=== PATIENT | male | born 2000 | race African-American/Black ===

== ENCOUNTER 2019-05-01 19:07 | Emergency (ER) | payer SELFPAY ==
--- NOTE | 2019-05-01 19:31 | RAD REPORT ---
EXAM DESCRIPTION: RAD - Chest Pa And Lat (2 Views) - 05/01/2019 7:25 pm CLINICAL HISTORY: COUGH Chest pain. COMPARISON: <Comparisons> FINDINGS: The lungs are clear. The heart is normal in size. No displaced fractures. IMPRESSION: No acute or concerning finding suspected.
--- NOTE | 2019-05-01 20:04 | ER ---
Nurse's Notes [facility] Name: Becky Badillo Age: 18 yrs Sex: Male : 2000 Arrival Date: 05/01/2019 Time: 19:09 Bed 7 Private MD: Diagnosis: Cough;Tobacco abuse counseling;Tobacco use;Bronchitis, not specified as acute or chronic Presentation: 05/01 19:15 Presenting complaint: Patient states: cough x 3 weeks, non productive. Pt reports tl2 smoking multiple black and mild cigars per day. Pt reports headache from cough. Denies fever. Transition of care: patient was not received from another setting of care. Onset of symptoms was April 13, 2019. Risk Assessment: Do you want to hurt yourself or someone else? Patient reports no desire to harm self or others. Initial Sepsis Screen: Does the patient meet any 2 criteria? No. Patient's initial sepsis screen is negative. Does the patient have a suspected source of infection? No. Patient's initial sepsis screen is negative. Care prior to arrival: None. 19:15 Method Of Arrival: Ambulatory tl2 19:15 Acuity: SVETA 4 tl2 Triage Assessment: 19:17 General: Appears in no apparent distress. comfortable, Behavior is calm, cooperative, tl2 appropriate for age. Respiratory: Reports cough that is non-productive, dry, persistent since 3 weeks ago. Historical: - Allergies: 19:17 No Known Allergies; tl2 - Home Meds: 19:17 None [Active]; tl2 - PMHx: 19:17 None; tl2 - PSHx: 19:17 None; tl2 - Immunization history:: Adult Immunizations up to date. - Social history:: Smoking status: Patient uses tobacco products, cigars. - Ebola Screening: : No symptoms or risks identified at this time. - Family history:: not pertinent. Screenin:18 Abuse screen: Denies threats or abuse. Nutritional screening: No deficits noted. tl2 Tuberculosis screening: No symptoms or risk factors identified. Fall Risk None identified. Assessment: 19:28 General:. General: Appears comfortable, Behavior is calm, cooperative, appropriate for tr5 age. Pain: Denies pain. Neuro: Level of Consciousness is awake, alert, obeys commands, Oriented to person, place, time, situation, Bun Machine Operator are equal bilaterally Moves all extremities. Cardiovascular: Heart tones present Bruits absent Capillary refill < 3 seconds Pulses are all present. Edema is absent. Respiratory: Reports cough that is Airway is patent Trachea midline Respiratory effort is even, unlabored, Respiratory pattern is regular, Breath sounds are diminished bilaterally. GI: No signs and/or symptoms were reported involving the gastrointestinal system. : No signs and/or symptoms were reported regarding the genitourinary system. EENT: No signs and/or symptoms were reported regarding the EENT system. Derm: No signs and/or symptoms reported regarding the dermatologic system. Skin is intact, Skin is dry, Skin is pink, warm \T\ dry. Skin temperature is warm. Musculoskeletal: Capillary refill < 3 seconds, Range of motion: intact in all extremities. 20:00 Reassessment: Patient appears in no apparent distress at this time. Patient and/or tr5 family updated on plan of care and expected duration. Pain level reassessed. Patient is alert, oriented x 3, equal unlabored respirations, skin warm/dry/pink. Pt instructed on discharge instruction. Pt verbalized understanding and need for follow up with PCP. Vital Signs: 19:17 BP 113 / 88; Pulse 72; Resp 18; Temp 98.1(O); Pulse Ox 100% on R/A; Weight 81.65 kg; tl2 Height 5 ft. 9 in. (175.26 cm); Pain 2/10; 19:17 Body Mass Index 26.58 (81.65 kg, 175.26 cm) tl2 ED Course: 19:09 Patient arrived in ED. as 19:12 Fortino Fowler MD is Attending Physician. [facility] 19:16 Triage completed. tl2 19:17 Arm band placed on right wrist. tl2 19:18 Patient has correct armband on for positive identification. Bed in low position. Call tl2 light in reach. Side rails up X 1. 19:24 Chest Pa And Lat (2 Views) XRAY In Process Unspecified. EDMS 19:26 Tho Laureano, SONYA is Primary Nurse. tr5 20:05 No provider procedures requiring assistance completed. Patient did not have IV access tr5 during this emergency room visit. Administered Medications: No medications were administered Outcome: 20:02 Discharge ordered by . abran 20:12 Patient left the ED. tr5 20:14 Discharged to home tr5 20:14 Condition: stable 20:14 Discharge instructions given to patient, Instructed on discharge instructions, follow up and referral plans. medication usage, Prescriptions given X 2. Signatures: Dispatcher [employer] Fortino Hartmann MD MD cha Martinez, Amelia as Knox, Taylor RN RN tl2 Tho Laureano RN RN tr5
--- NOTE | 2019-05-01 20:04 | EDPHYS ---
Physician Documentation [facility] Name: Becky Badillo Age: 18 yrs Sex: Male : 2000 Arrival Date: 05/01/2019 Time: 19:09 Bed 7 Private MD: ED Physician Fortino Fowler HPI: 05/01 19:45 This 18 yrs old Black Male presents to ER via Ambulatory with complaints of Cough. abran 19:45 The patient or guardian reports cough, that is intermittent. Onset: The abran symptoms/episode began/occurred 3 day(s) ago. Severity of symptoms: At their worst the symptoms were mild, in the emergency department the symptoms are unchanged. Modifying factors: The symptoms are alleviated by nothing, the symptoms are aggravated by dust, exertion, smoke. Associated signs and symptoms: The patient has no apparent associated signs or symptoms. The patient has experienced similar episodes in the past, several times. Historical: - Allergies: 19:17 No Known Allergies; tl2 - Home Meds: 19:17 None [Active]; tl2 - PMHx: 19:17 None; tl2 - PSHx: 19:17 None; tl2 - Immunization history:: Adult Immunizations up to date. - Social history:: Smoking status: Patient uses tobacco products, cigars. - Ebola Screening: : No symptoms or risks identified at this time. - Family history:: not pertinent. ROS: 19:45 Constitutional: Negative for fever, chills, and weight loss, Eyes: Negative for injury, abran pain, redness, and discharge, ENT: Negative for injury, pain, and discharge, Neck: Negative for injury, pain, and swelling, Cardiovascular: Negative for chest pain, palpitations, and edema, Abdomen/GI: Negative for abdominal pain, nausea, vomiting, diarrhea, and constipation, Back: Negative for injury and pain, : Negative for injury, bleeding, discharge, and swelling, MS/Extremity: Negative for injury and deformity, Skin: Negative for injury, rash, and discoloration, Neuro: Negative for headache, weakness, numbness, tingling, and seizure, Psych: Negative for depression, anxiety, suicide ideation, homicidal ideation, and hallucinations, Allergy/Immunology: Negative for hives, rash, and allergies, Endocrine: Negative for neck swelling, polydipsia, polyuria, polyphagia, and marked weight changes, Hematologic/Lymphatic: Negative for swollen nodes, abnormal bleeding, and unusual bruising. 19:45 Respiratory: Positive for cough, with green sputum. Exam: 19:45 Constitutional: This is a well developed, well nourished patient who is awake, alert, abran and in no acute distress. Head/Face: Normocephalic, atraumatic. Eyes: Pupils equal round and reactive to light, extra-ocular motions intact. Lids and lashes normal. Conjunctiva and sclera are non-icteric and not injected. Cornea within normal limits. Periorbital areas with no swelling, redness, or edema. ENT: Nares patent. No nasal discharge, no septal abnormalities noted. Tympanic membranes are normal and external auditory canals are clear. Oropharynx with no redness, swelling, or masses, exudates, or evidence of obstruction, uvula midline. Mucous membranes moist. Neck: Trachea midline, no thyromegaly or masses palpated, and no cervical lymphadenopathy. Supple, full range of motion without nuchal rigidity, or vertebral point tenderness. No Meningismus. Chest/axilla: Normal chest wall appearance and motion. Nontender with no deformity. No lesions are appreciated. Cardiovascular: Regular rate and rhythm with a normal S1 and S2. No gallops, murmurs, or rubs. Normal PMI, no JVD. No pulse deficits. Abdomen/GI: Soft, non-tender, with normal bowel sounds. No distension or tympany. No guarding or rebound. No evidence of tenderness throughout. Back: No spinal tenderness. No costovertebral tenderness. Full range of motion. Male : Normal genitalia with no discharge or lesions. Skin: Warm, dry with normal turgor. Normal color with no rashes, no lesions, and no evidence of cellulitis. MS/ Extremity: Pulses equal, no cyanosis. Neurovascular intact. Full, normal range of motion. Neuro: Awake and alert, GCS 15, oriented to person, place, time, and situation. Cranial nerves II-XII grossly intact. Motor strength 5/5 in all extremities. Sensory grossly intact. Cerebellar exam normal. Normal gait. Psych: Awake, alert, with orientation to person, place and time. Behavior, mood, and affect are within normal limits. 19:45 Respiratory: the patient does not display signs of respiratory distress, Respirations: normal, Breath sounds: rhonchi, that are mild, are scattered. Vital Signs: 19:17 BP 113 / 88; Pulse 72; Resp 18; Temp 98.1(O); Pulse Ox 100% on R/A; Weight 81.65 kg; tl2 Height 5 ft. 9 in. (175.26 cm); Pain 2/10; 19:17 Body Mass Index 26.58 (81.65 kg, 175.26 cm) tl2 MDM: 19:12 Patient medically screened. [facility] 20:00 Data reviewed: vital signs, nurses notes, radiologic studies, plain films. [facility] 05/01 19:12 Order name: Chest Pa And Lat (2 Views) XRAY; Complete Time: 19:39 [facility] Administered Medications: No medications were administered Disposition: 05/01/19 20:02 Discharged to Home. Impression: Cough, Tobacco abuse counseling, Tobacco use, Bronchitis, not specified as acute or chronic. - Condition is Stable. - Discharge Instructions: Steps to Quit Smoking, Smoking Hazards, Upper Respiratory Infection, Adult, Cool Mist Vaporizer, Steps to Quit Smoking, [id number], Cough, Adult, [id number], Cough, Adult. - Prescriptions for Bromfed DM 2- 30-10 mg/5 mL Oral syrup - take 10 milliliter by ORAL route every 6 hours; 160 milliliter. Zithromax Z- Christiano 250 mg Oral Tablet - take 1 tablet by ORAL route as directed for 5 days Day 1 - take two (2) tablets one time. Day 2, 3, 4 , 5 take one (1) tablet once daily.; 6 tablet. - Medication Reconciliation Form, Thank You Letter, Antibiotic Education, Prescription Opioid Use form. - Follow up: Private Physician; When: 2 - 3 days; Reason: Recheck today's complaints, Continuance of care, Re-evaluation by your physician. - Problem is new. - Symptoms have improved. Signatures: Dispatcher [employer] EDFortino Leiva MD MD cha Knox, Taylor, RN RN tl2 Tho Laureano RN RN tr5 Corrections: (The following items were deleted from the chart) 20:12 20:02 05/01/2019 20:02 Discharged to Home. Impression: Cough; Tobacco abuse counseling; tr5 Tobacco use; Bronchitis, not specified as acute or chronic. Condition is Stable. Forms are Medication Reconciliation Form, Thank You Letter, Antibiotic Education, Prescription Opioid Use. Follow up: Private Physician; When: 2 - 3 days; Reason: Recheck today's complaints, Continuance of care, Re-evaluation by your physician. Problem is new. Symptoms have improved. abran
== END 2019-05-01 20:12 | disposition home or self-care (01) ==
LOC: ER 19:07
DX: J40 Bronchitis, not specified as acute or chronic (principal); Z72.0 Tobacco use; Z71.6 Tobacco abuse counseling
CPT/HCPCS: 71046; 99283

== ENCOUNTER 2020-05-29 18:30 | Emergency (ER) | payer SELFPAY ==
--- NOTE | 2020-05-29 21:10 | RAD REPORT ---
EXAM DESCRIPTION: RAD - Chest Single View - 05/29/2020 8:23 pm CLINICAL HISTORY: Cough;Hemoptysis COMPARISON: Two view chest April 2019 TECHNIQUE: AP portable chest image was obtained 05/29/2020 8:23 pm . FINDINGS: Lung volumes are low. No focal mass or consolidation. Heart and vasculature are normal. No measurable pleural effusion and no pneumothorax. No acute bony abnormality seen. No acute aortic fin dings suspected. IMPRESSION: Limited shallow inspiration film without acute cardiopulmonary finding.
--- NOTE | 2020-05-29 21:21 | EDPHYS ---
Physician Documentation [facility] Name: Becky Badillo Age: 19 yrs Sex: Male : 2000 Arrival Date: 05/29/2020 Time: 18:32 Bed 16 Private MD: ED Physician Yon Juarez HPI: 05/29 19:52 This 19 yrs old Black Male presents to ER via Ambulatory with complaints of Cough - cp blood. 19:52 The patient or guardian reports cough, that is intermittent, with productive sputum, cp productive with blood. Onset: The symptoms/episode began/occurred this morning. Associated signs and symptoms: Pertinent positives: sore throat, Pertinent negatives: chest pain, fever, vomiting. Historical: - Allergies: 18:59 No Known Allergies; ks7 - Home Meds: 18:59 None [Active]; ks7 - PMHx: 18:59 None; ks7 - PSHx: 18:59 None; ks7 - Immunization history:: Adult Immunizations not up to date. - Social history:: Smoking status: Patient/guardian denies using tobacco, QUIT 1 WEEK AGO. ROS: 20:00 Constitutional: Negative for body aches, chills, fever, poor PO intake. cp 20:00 Eyes: Negative for injury, pain, redness, and discharge. cp 20:00 ENT: Positive for sore throat. 20:00 Cardiovascular: Negative for chest pain, edema, palpitations. 20:00 Respiratory: Positive for cough, hemoptysis, Negative for shortness of breath, wheezing. 20:00 Neuro: Negative for headache, weakness. 20:00 All other systems are negative. Exam: 20:05 Head/Face: Normocephalic, atraumatic. cp 20:05 Constitutional: The patient appears in no acute distress, alert, awake, non-toxic, well developed, well nourished. 20:05 Eyes: Periorbital structures: appear normal, Conjunctiva: normal, no exudate, no cp injection, Lids and lashes: appear normal, bilaterally. 20:05 ENT: External ear(s): are unremarkable, Ear canal(s): are normal, clear, TM's: dullness, bilaterally, Nose: is normal, Mouth: Lips: moist, Oral mucosa: moist, Posterior pharynx: Airway: no evidence of obstruction, patent, Tonsils: no enlargement, no exudate, erythema, that is mild, exudate, is not appreciated. 20:05 Neck: Lymph nodes: no appreciated lymphadenopathy. 20:05 Chest/axilla: Inspection: normal, Palpation: is normal, no crepitus, no tenderness. 20:05 Cardiovascular: Rate: normal, Rhythm: regular, Edema: is not appreciated, JVD: is not appreciated. 20:05 Respiratory: the patient does not display signs of respiratory distress, Respirations: normal, no use of accessory muscles, no retractions, labored breathing, is not present, Breath sounds: are clear throughout, no decreased breath sounds, no stridor, no wheezing. 20:05 Abdomen/GI: Exam negative for discomfort, distension, guarding, Inspection: abdomen appears normal. Vital Signs: 18:55 BP 122 / 78; Pulse 81; Resp 18; Temp 99.3; Pulse Ox 100% on R/A; Weight 81.65 kg; ks7 Height 5 ft. 9 in. (175.26 cm); Pain 0/10; 20:30 BP 134 / 86; Pulse 68; Resp 17; Pulse Ox 100% on R/A; rv 18:55 Body Mass Index 26.58 (81.65 kg, 175.26 cm) ks7 MDM: 19:42 Patient medically screened. cp 20:00 Differential Diagnosis: Bronchitis Influenza Viral Syndrome Pneumonia Other COVID-19. cp 20:58 Test interpretation: by ED physician or midlevel provider: chest xray negative for cp infiltrates. 21:20 Data reviewed: vital signs, nurses notes, lab test result(s), radiologic studies, plain cp films. 21:20 Counseling: I had a detailed discussion with the patient and/or guardian regarding: the cp historical points, exam findings, and any diagnostic results supporting the discharge/admit diagnosis, lab results, radiology results, to return to the emergency department if symptoms worsen or persist or if there are any questions or concerns that arise at home. ED course: Patient instructed to quarantine until results of COVID-19 testing return. 05/29 19:51 Order name: COVID-19 cp 05/29 19:51 Order name: Flu cp 05/29 19:51 Order name: CXR XRAY; Complete Time: 21:13 cp 05/29 21:13 Interpretation: Report review. cp 05/29 19:51 Order name: Strep 05/29 19:51 Order name: Document PUI#; Complete Time: 21:06 05/29 21:16 Order name: Throat Culture [facility] 05/29 19:51 Order name: Droplet/Contact Precautions; Complete Time: 21:06 05/29 19:51 Order name: Labs collected and sent; Complete Time: 21:06 05/29 19:51 Order name: Notify Health Dept [id number]/ ; Complete Time: 21:06 Administered Medications: No medications were administered Disposition: 05/30 00:52 Co-signature as Attending Physician, Yon Juarez MD. [email or web address] Disposition: 05/29/20 21:20 Discharged to Home. Impression: Acute upper respiratory infection, unspecified. - Condition is Stable. - Discharge Instructions: Upper Respiratory Infection, Adult. - Prescriptions for Tessalon Perles 100 mg Oral Capsule - take 2 capsule by ORAL route every 8 hours As needed; 30 capsule. Zithromax Z- Christiano 250 mg Oral Tablet - take 1 tablet by ORAL route as directed for 5 days Day 1 - take two (2) tablets one time. Day 2, 3, 4 , 5 take one (1) tablet once daily.; 6 tablet. - Medication Reconciliation Form, Thank You Letter, Antibiotic Education, Prescription Opioid Use form. - Follow up: Private Physician; When: 2 - 3 days; Reason: Worsening of condition. - Problem is new. - Symptoms are unchanged. Addendum: 06/02/2020 09:14 Addendum: Notified patient of + COVID-19 test results 06/02/20 \T\ 0915, states feeling rn better now, return precautions given and understood. . Signatures: Dispatcher [employer] EDYon Araiza MD MD pkl Madhu Gutierres MD MD rn Page, Corey, PA PA Luis Sy RN RN mg2 Geraldine Walker RN RN ks7 Corrections: (The following items were deleted from the chart) 05/29 21:29 21:20 05/29/2020 21:20 Discharged to Home. Impression: Acute upper respiratory mg2 infection, unspecified. Condition is Stable. Forms are Medication Reconciliation Form, Thank You Letter, Antibiotic Education, Prescription Opioid Use. Follow up: Private Physician; When: 2 - 3 days; Reason: Worsening of condition. Problem is new. Symptoms are unchanged. cp
--- NOTE | 2020-05-29 21:21 | ER ---
Nurse's Notes [facility] Name: Becky Badillo Age: 19 yrs Sex: Male : 2000 Arrival Date: 05/29/2020 Time: 18:32 Bed 16 Private MD: Diagnosis: Acute upper respiratory infection, unspecified Presentation: 05/29 18:55 Chief complaint: Patient states: Pt comes in for blood in sputum x 1 today. Pt denies ks7 any upper respiratory sx until today. Pt also c/o losing sense of smell and taste since Tuesday. Pt unsure of whether he has been exposed to covid. Coronavirus screen: Client denies travel out of the [place] in the last 14 days. cough unrelated to allergies, loss of taste or smell, The client denies any previous COVID testing. Ebola Screen: Patient negative for fever greater than or equal to 101.5 degrees Fahrenheit, and additional compatible Ebola Virus Disease symptoms Patient denies exposure to infectious person. Patient denies travel to an Ebola-affected area in the 21 days before illness onset. Initial Sepsis Screen: Does the patient meet any 2 criteria? No. Patient's initial sepsis screen is negative. Does the patient have a suspected source of infection? No. Patient's initial sepsis screen is negative. Risk Assessment: Do you want to hurt yourself or someone else? Patient reports no desire to harm self or others. Onset of symptoms was May 29, 2020. 18:55 Method Of Arrival: Ambulatory ks7 18:55 Acuity: SVETA 3 ks7 Triage Assessment: 18:59 General: Appears in no apparent distress. Behavior is calm, cooperative. Pain: Denies ks7 pain. Historical: - Allergies: 18:59 No Known Allergies; ks7 - Home Meds: 18:59 None [Active]; ks7 - PMHx: 18:59 None; ks7 - PSHx: 18:59 None; ks7 - Immunization history:: Adult Immunizations not up to date. - Social history:: Smoking status: Patient/guardian denies using tobacco, QUIT 1 WEEK AGO. Screenin:09 Abuse screen: Denies threats or abuse. Denies injuries from another. Nutritional rv screening: No deficits noted. Tuberculosis screening: No symptoms or risk factors identified. Fall Risk None identified. Assessment: 21:00 General: Appears in no apparent distress. comfortable. Pain: Denies pain. Neuro: Level mg2 of Consciousness is awake, alert, obeys commands, Oriented to person, place, time, situation. Cardiovascular: Capillary refill < 3 seconds Patient's skin is warm and dry. Respiratory: Reports cough that is Airway is patent Respiratory effort is even, unlabored, Respiratory pattern is regular, symmetrical. GI: No signs and/or symptoms were reported involving the gastrointestinal system. : No signs and/or symptoms were reported regarding the genitourinary system. EENT: No signs and/or symptoms were reported regarding the EENT system. Derm: Skin is intact, is healthy with good turgor, Skin is pink, warm \T\ dry. normal. Musculoskeletal: Circulation, motion, and sensation intact. Capillary refill < 3 seconds. Vital Signs: 18:55 BP 122 / 78; Pulse 81; Resp 18; Temp 99.3; Pulse Ox 100% on R/A; Weight 81.65 kg; ks7 Height 5 ft. 9 in. (175.26 cm); Pain 0/10; 20:30 BP 134 / 86; Pulse 68; Resp 17; Pulse Ox 100% on R/A; rv 18:55 Body Mass Index 26.58 (81.65 kg, 175.26 cm) ks7 ED Course: 18:32 Patient arrived in ED. as 18:59 Triage completed. ks7 18:59 Arm band placed on right wrist. ks7 19:38 Fortino Pedroza PA is PHCP. cp 19:38 Yon Juarez MD is Attending Physician. cp 19:45 Eduardo Amezquita RN is Primary Nurse. rv 20:23 CXR XRAY In Process Unspecified. EDMS 21:00 Patient did not have IV access during this emergency room visit. mg2 21:09 Patient has correct armband on for positive identification. Placed in gown. Bed in low rv position. Call light in reach. Pulse ox on. NIBP on. 21:27 No provider procedures requiring assistance completed. mg2 Administered Medications: No medications were administered Outcome: 21:20 Discharge ordered by . cp 21:28 Discharged to home ambulatory. mg2 21:28 Condition: stable 21:28 Discharge instructions given to patient, Instructed on discharge instructions, follow up and referral plans. medication usage, Demonstrated understanding of instructions, follow-up care, medications, Prescriptions given X 2. 21:29 Patient left the ED. mg2 Signatures: Dispatcher [employer] EDMS Ysabel Andrews Corey, PA PA cp Gardose, Michele, RN RN mg2 Eduardo Amezquita RN RN rv Geraldine Walker RN RN ks7
[2020-05-29 21:34] VITALS: BP 134/86; TEMP 99.3; O2SAT 100
== END 2020-05-29 21:29 | disposition home or self-care (01) ==
LOC: ER 18:30
DX: U07.1 COVID-19 (principal); J98.8 Other specified respiratory disorders
CPT/HCPCS: 71045; 87070; 87081; 87804; 99283; U0002

== ENCOUNTER 2024-05-31 09:25 | Emergency (ER) | payer OTHER, SELFPAY ==
--- NOTE | 2024-05-31 09:46 | ER ---
Nurse's Notes [facility] Name: Becky Badillo Age: 23 yrs Sex: Male : 2000 Arrival Date: 05/31/2024 Time: 09:25 Bed 20 Private MD: Diagnosis: Acute pharyngitis, unspecified Presentation: 05/31 09:33 Chief complaint: Patient states: Sore throat X 3 days. Pt requesting doctors note. ld1 Coronavirus screen: At this time, the client does not indicate any symptoms associated with coronavirus-19. Ebola Screen: No symptoms or risks identified at this time. Initial Sepsis Screen: Does the patient meet any 2 criteria? No. Patient's initial sepsis screen is negative. Does the patient have a suspected source of infection? No. Patient's initial sepsis screen is negative. Risk Assessment: Do you want to hurt yourself or someone else? Patient reports no desire to harm self or others. Onset of symptoms was May 31, 2024. 09:33 Method Of Arrival: Ambulatory ld1 09:33 Acuity: SVETA 4 ld1 Triage Assessment: 09:36 General: Appears in no apparent distress. comfortable, Behavior is calm, cooperative, ld1 appropriate for age. Pain: Denies pain. EENT: No signs and/or symptoms were reported regarding the EENT system. Neuro: Level of Consciousness is awake, alert, obeys commands, Oriented to person, place, time, situation. Cardiovascular: Capillary refill < 3 seconds Patient's skin is warm and dry. Respiratory: Airway is patent Respiratory effort is even, unlabored. GI: Abdomen is flat, non-distended. : No signs and/or symptoms were reported regarding the genitourinary system. Derm: No signs and/or symptoms reported regarding the dermatologic system. Musculoskeletal: No signs and/or symptoms reported regarding the musculoskeletal system. Historical: - Allergies: 09:36 No Known Allergies; ld1 09:36 No Known Allergies; ar6 - Home Meds: 09:36 None [Active]; ld1 - PMHx: 09:36 None; ld1 - PSHx: 09:36 None; ld1 - Immunization history:: Adult Immunizations up to date, Adult Immunizations up to date. - Infectious Disease History:: Denies. Denies. - Social history:: Smoking status: Patient denies any tobacco usage or history of. Smoking status: Reported history of juuling and/or vaping. - Family history:: not pertinent. Screenin:36 [facility] ED Fall Risk Assessment (Adult) History of falling in the last 3 months, ar6 including since admission No falls in past 3 months (0 pts) Confusion or Disorientation No (0 pts) Intoxicated or Sedated No (0 pts) Impaired Gait No (0 pts) Mobility Assist Device Used No (0 pt) Altered Elimination No (0 pt) Score/Fall Risk Level 0 - 2 = Low Risk. Abuse screen: Denies threats or abuse. Denies injuries from another. Nutritional screening: No deficits noted. Tuberculosis screening: No symptoms or risk factors identified. Assessment: 09:33 Pain: Pain: Denies pain. Respiratory: Airway is patent Respiratory effort is even, ar6 unlabored, Breath sounds are clear bilaterally. EENT: Throat is pink is reddened. 09:33 General: Appears in no apparent distress. Behavior is calm, cooperative, appropriate ar6 for age. Neuro: Level of Consciousness is awake, alert, obeys commands, Oriented to person, place, time, situation. Cardiovascular: Capillary refill < 3 seconds. Respiratory: Reports cough that is non-productive. GI: Abdomen is flat, non-distended. : No signs and/or symptoms were reported regarding the genitourinary system. Derm: Skin is intact. Musculoskeletal: No signs and/or symptoms reported regarding the musculoskeletal system. Vital Signs: 09:33 Weight 95.25 kg; Height 5 ft. 9 in. ; Pain 0/10; ld1 09:36 BP 133 / 81; Pulse 77; Resp 18; Temp 98.6; Pulse Ox 100% on R/A; Weight 113.4 kg; ar6 Height 5 ft. 7 in. ; Pain 0/10; 09:54 BP 126 / 77; Pulse 81; Resp 16; Pulse Ox 100% on R/A; ar6 09:36 Body Mass Index 39.16 (113.40 kg, 170.18 cm) ar6 09:33 Pain Scale: Adult ld1 09:36 Pain Scale: Adult ar6 ED Course: 09:28 Patient arrived in ED. ra3 09:28 Fortino Fowler MD is Attending Physician. abran 09:33 Debra Lewis, RN is Primary Nurse. ar6 09:36 Triage completed. ld1 09:36 No apparent distress. ar6 09:36 Arm band placed on right wrist. ld1 09:36 Patient has correct armband on for positive identification. Bed in low position. Call ar6 light in reach. Side rails up X 1. Provided Education on:. Pulse ox on. NIBP on. Door closed. Noise minimized. Visitors limited. Lights dimmed. 09:36 No provider procedures requiring assistance completed. Patient did not have IV access ar6 during this emergency room visit. Administered Medications: No medications were administered Medication: 09:36 VIS not applicable for this client. ar6 Outcome: 09:39 Discharged to home ambulatory, ar6 09:39 Condition: good 09:39 Discharge instructions given to patient, Instructed on discharge instructions, follow up and referral plans. 09:45 Discharge ordered by . abran 09:55 Patient left the ED. ar6 Signatures: Fortino Fowler MD MD cha Sims, Lauren, RN RN ld1 Belem Kurtz ra3 Debra Lewis, RN RN ar6
--- NOTE | 2024-05-31 09:46 | EDPHYS ---
Physician Documentation [facility] Name: Becky Badillo Age: 23 yrs Sex: Male : 2000 Arrival Date: 05/31/2024 Time: :25 Bed 20 Private MD: ED Physician Fortino Fowler HPI: 05/31 09:40 This 23 yrs old Black Male presents to ER via Ambulatory with complaints of Sore Throat.abran 09:40 The patient presents with sore throat. The patient describes throat pain as constant. abran Onset: The symptoms/episode began/occurred 2 day(s) ago. Severity of symptoms: At their worst the symptoms were mild, in the emergency department the symptoms are unchanged. Modifying factors: The symptoms are alleviated by nothing, the symptoms are aggravated by swallowing. Associated signs and symptoms: The patient has no apparent associated signs or symptoms. The patient has experienced similar episodes in the past, a few times. Historical: - Allergies: 09:36 No Known Allergies; ld1 09:36 No Known Allergies; ar6 - Home Meds: 09:36 None [Active]; ld1 - PMHx: 09:36 None; ld1 - PSHx: 09:36 None; ld1 - Immunization history:: Adult Immunizations up to date, Adult Immunizations up to date. - Infectious Disease History:: Denies. Denies. - Social history:: Smoking status: Patient denies any tobacco usage or history of. Smoking status: Reported history of juuling and/or vaping. - Family history:: not pertinent. ROS: 09:40 Constitutional: Negative for fever, chills, and weight loss, Eyes: Negative for injury, abran pain, redness, and discharge, Neck: Negative for injury, pain, and swelling, Cardiovascular: Negative for chest pain, palpitations, and edema, Respiratory: Negative for shortness of breath, cough, wheezing, and pleuritic chest pain, Abdomen/GI: Negative for abdominal pain, nausea, vomiting, diarrhea, and constipation, Back: Negative for injury and pain, : Negative for injury, bleeding, discharge, and swelling, MS/Extremity: Negative for injury and deformity, Skin: Negative for injury, rash, and discoloration, Neuro: Negative for headache, weakness, numbness, tingling, and seizure, Psych: Negative for depression, anxiety, suicide ideation, homicidal ideation, and hallucinations, Allergy/Immunology: Negative for hives, rash, and allergies, Endocrine: Negative for neck swelling, polydipsia, polyuria, polyphagia, and marked weight changes, Hematologic/Lymphatic: Negative for swollen nodes, abnormal bleeding, and unusual bruising, 09:40 ENT: Positive for sinus congestion, sore throat, Exam: 09:40 Constitutional: This is a well developed, well nourished patient who is awake, alert, abran and in no acute distress. Head/Face: Normocephalic, atraumatic. Eyes: Pupils equal round and reactive to light, extra-ocular motions intact. Lids and lashes normal. Conjunctiva and sclera are non-icteric and not injected. Cornea within normal limits. Periorbital areas with no swelling, redness, or edema. Neck: Trachea midline, no thyromegaly or masses palpated, and no cervical lymphadenopathy. Supple, full range of motion without nuchal rigidity, or vertebral point tenderness. No Meningismus. Chest/axilla: Normal chest wall appearance and motion. Nontender with no deformity. No lesions are appreciated. Cardiovascular: Regular rate and rhythm with a normal S1 and S2. No gallops, murmurs, or rubs. Normal PMI, no JVD. No pulse deficits. Respiratory: Lungs have equal breath sounds bilaterally, clear to auscultation and percussion. No rales, rhonchi or wheezes noted. No increased work of breathing, no retractions or nasal flaring. Abdomen/GI: Soft, non-tender, with normal bowel sounds. No distension or tympany. No guarding or rebound. No evidence of tenderness throughout. Back: No spinal tenderness. No costovertebral tenderness. Full range of motion. Male : Normal genitalia with no discharge or lesions. Skin: Warm, dry with normal turgor. Normal color with no rashes, no lesions, and no evidence of cellulitis. MS/ Extremity: Pulses equal, no cyanosis. Neurovascular intact. Full, normal range of motion. Neuro: Awake and alert, GCS 15, oriented to person, place, time, and situation. Cranial nerves II-XII grossly intact. Motor strength 5/5 in all extremities. Sensory grossly intact. Cerebellar exam normal. Normal gait. Psych: Awake, alert, with orientation to person, place and time. Behavior, mood, and affect are within normal limits. 09:40 ENT: Posterior pharynx: Airway: normal, no evidence of obstruction, Tonsils: with erythema, Uvula: normal, midline, non-edematous, no erythema, swelling, is not appreciated, erythema, is not appreciated, Vital Signs: 09:33 Weight 95.25 kg; Height 5 ft. 9 in. ; Pain 0/10; ld1 09:36 BP 133 / 81; Pulse 77; Resp 18; Temp 98.6; Pulse Ox 100% on R/A; Weight 113.4 kg; ar6 Height 5 ft. 7 in. ; Pain 0/10; 09:54 BP 126 / 77; Pulse 81; Resp 16; Pulse Ox 100% on R/A; ar6 09:36 Body Mass Index 39.16 (113.40 kg, 170.18 cm) ar6 09:33 Pain Scale: Adult ld1 09:36 Pain Scale: Adult ar6 MDM: 09:29 Patient medically screened. [facility] 09:43 Differential diagnosis: group A strep tonsillitis, pharyngitis. Data reviewed: vital abran signs, nurses notes. Consideration of Admission/Observation Escalation of care including admission/observation considered. I considered the following discharge prescriptions or medication management in the emergency department Medications were administered in the Emergency Department. See MAR. Care significantly affected by the following chronic conditions: none. Administered Medications: No medications were administered Disposition Summary: 05/31/24 09:45 Discharge Ordered Notes: Location: Home [facility] Problem: new abran Symptoms: have improved abran Condition: Stable abran Diagnosis - Acute pharyngitis, unspecified abran Followup: baran - With: Private Physician - When: 2 - 3 days - Reason: Recheck today's complaints, Continuance of care, Re-evaluation by your physician Discharge Instructions: - Discharge Summary Sheet abran - Pharyngitis abran - Sore Throat abran - Pharyngitis, [id number] abran Forms: - Work release form bd - Medication Reconciliation Form abran - Antibiotic Education abran - Prescription Opioid Use abran - Patient Portal Instructions abran - Leadership Thank You Letter [facility] Prescriptions: - Zithromax Z-Christiano 250 mg Oral Tablet - take 1 tablet ORAL route as directed for 5 days Day 1 - take two (2) tablets abran one time. Day 2, 3, 4 , 5 take one (1) tablet once daily.; 6 tablet; Refills: 0, Product Selection Permitted Signatures: Fortino Fowler MD MD cha Sims, Lauren, RN RN ld1 Debra Lewis RN RN ar6
[2024-05-31 10:00] VITALS: TEMP 98.6; O2SAT 100
[2024-05-31 10:01] VITALS: BP 126/77
== END 2024-05-31 09:55 | disposition home or self-care (01) ==
LOC: ER 09:25
DX: J02.9 Acute pharyngitis, unspecified (principal); F17.290 Nicotine dependence, other tobacco product, uncomplicated
CPT/HCPCS: 99283

== ENCOUNTER 2025-07-24 20:45 | Emergency (ER) | payer OTHER, SELFPAY ==
--- NOTE | 2025-07-24 21:37 | ER ---
Nurse's Notes [facility] Name: Becky Badillo Age: 25 yrs Sex: Male : 2000 Arrival Date: 07/24/2025 Time: 20:45 Bed IW10 Private MD: Diagnosis: Assessment: 07/24 21:21 Reassessment: CALLED TWICE FROM TRIAGE, NO ANSWER. dd2 ED Course: 20:48 Patient arrived in ED. mr Administered Medications: No medications were administered Outcome: 21:36 Eloped from waiting room, before seeing physician Time discovered patient gone: July at 21:30 21:37 Patient left the ED. vc1 Signatures: Jeanette Moses, Abbey Bateman RN RN vc1 JONATHAN GASTELUM RN RN dd2
== END 2025-07-24 21:37 | disposition left against medical advice (07) ==
LOC: ER 20:45
DX: Z02.9 Encounter for administrative examinations, unspecified (principal)